=== PATIENT | female | born 1970 | race Caucasian/White ===

== ENCOUNTER 2017-01-04 19:37 | Emergency (ER) | payer BC ==
[2017-01-04] MEDS ORDERED: Albuterol/Ipratropium 3.0-0.5 MG/3 ML Neb Soln NEB ONE (19:56)
[2017-01-04] MEDS ORDERED: Albuterol/Ipratropium 3.0-0.5 MG/3 ML Neb Soln ONE (19:57)
--- NOTE | 2017-01-04 21:17 | EDM.PDOC ---
ED HISTORY OF PRESENT ILLNESS - General Chief Complaint: Respiratory Problem Stated Complaint: PT HAS CONGESTION Time Seen by Provider: 01/04/17 19:55 Source of Information: Reports: Patient History Limitations: Reports: No limitations - History of Present Illness INITIAL COMMENTS - FREE TEXT/NARRATIVE: History of present illness: [46-year-old female presenting with acute onset of wheezing and received inability to catch her breath. Patient has a known history of chronic bronchitis as well as asthma. Take it she's used her inhalers but they did not give her any relief.] Review of systems: As per history of present illness and below otherwise all systems reviewed and negative. Past medical history: As per history of present illness and as reviewed below otherwise noncontributory. Surgical history: As per history of present illness and as reviewed below otherwise noncontributory. Social history: No reported history of drug or alcohol abuse. Family history: As per history of present illness and as reviewed below otherwise noncontributory. Physical exam: HEENT: Atraumatic, normocephalic, pupils reactive, negative for conjunctival pallor or scleral icterus, mucous membranes moist, throat clear, neck supple, nontender, trachea midline. Lungs: Decreased air movement bilaterally with inspiratory and end expiratory wheezes, slightly improves with a cough. Otherwise chest nontender. Heart: S1S2, regular, negative for clicks, rubs, or JVD. Abdomen: Soft, nondistended, nontender. Negative for masses or hepatosplenomegaly. Negative for costovertebral tenderness. Pelvis: Stable nontender. Genitourinary: Deferred. Rectal: Deferred. Extremities: Atraumatic, negative for cords or calf pain. Neurovascular unremarkable. Neuro: Awake, alert, oriented. Cranial nerves II through XII unremarkable. Cerebellum unremarkable. Motor and sensory unremarkable throughout. Exam nonfocal. Patient indicates the procedure and as a breath and the unremitting coughing is what brought her in this evening. Patient received a DuoNeb and noted to have easy work of breathing and indicates that she does feel like she is getting good air now. In light of patient's chronic lung disease and continued smoking will overlie him in a her home nebs and steroid treatment with a run of antibiotics. Diagnostics: [Chest x-ray] Therapeutics: [Duo neb] Impression: [Asthma exacerbation acute on chronic] Plan: [Bursts of steroids, antibiotics,] Definitive disposition and diagnosis as appropriate pending reevaluation and review of above. - Related Data Allergies/ADRs: Allergies Allergy/AdvReac Type Severity Reaction Status Date / Time No Known Allergies Allergy Verified 04/22/16 19:41 Home Meds: Home Meds Albuterol Sulfate [Albuterol Sulfate HFA] 2 puff ORAL.INH Q4HR 05/17/15 [History ] Azithromycin [IJD: Azithromycin] 250 mg PO DAILY #6 tab 01/04/17 [Rx] Multivitamin [Multi-Vitamin Daily] 1 tab PO DAILY 01/04/17 [History] methylPREDNISolone [Medrol] 4 mg PO DAILY #21 tab.ds.pk 01/04/17 [Rx] Past Medical History HEENT History: Reports: Other (see below) Other HEENT History: eye surgery as a child Respiratory History: Reports: Asthma [employer] History: Reports: Oncologic (Cancer) History: Reports: Squamous cell carcinoma - Infectious Disease History Infectious Disease History: Reports: Hepatitis C - Past Surgical History GI Surgical History: Reports: Cholecystectomy Dermatological Surgical History: Reports: Other (see below) Social & Family History - Family History Family Medical History: Noncontributory Cardiac: Reports: Hypertension - Tobacco Use Smoking Status *Q: Current Every Day Smoker Years of Tobacco use: 25 Packs/Tins Daily: 1 Used Tobacco, but Quit: No Second Hand Smoke Exposure: Yes - Caffeine Use Caffeine Use: Reports: Coffee - Alcohol Use Days Per Week of Alcohol Use: 0 - Recreational Drug Use Recreational Drug Use: No ED ROS GENERAL - Review of Systems Review Of Systems: See Below (The history of present illness) ED EXAM, GENERAL - Physical Exam Exam: See Below (History of present illness) Course - Vital Signs Last Recorded V/S: Last Vital Signs Temp 36.0 C 01/04/17 19:42 Pulse 79 01/04/17 19:42 Resp 18 01/04/17 19:42 BP 156/89 H 01/04/17 19:42 Pulse Ox 96 01/04/17 19:42 - Orders/Labs/Meds Orders: Active Orders 24 hr Category Date Time Status RT Aerosol Therapy [RC] ASDIRECTED Care 01/04/17 19:56 Active CXR [Chest 2V] [CR] Stat Exams 01/04/17 20:17 Taken Meds: Medications Discontinued Medications Generic Name Dose Route Start Last Admin Trade Name Fremalik PRN Reason Stop Dose Admin Albuterol/Ipratropium 3 ml 01/04/17 19:56 01/04/17 21:09 Duoneb 3.0-0.5 Mg/3 Ml NEB 01/04/17 19:57 3 ml ONETIME ONE Administration Albuterol/Ipratropium Confirm 01/04/17 19:57 01/04/17 21:08 Duoneb 3.0-0.5 Mg/3 Ml Administered 01/04/17 19:58 Not Given Dose 3 ml .ROUTE .STK-MED ONE Departure - Departure Time of Disposition: 21:15 Disposition: Home, Self-Care 01 Condition: good Clinical Impression: Acute asthma, Chronic bronchitis with acute exacerbation Prescriptions: Azithromycin [IJD: Azithromycin] 250 mg PO DAILY #6 tab methylPREDNISolone [Medrol] 4 mg PO DAILY #21 tab.ds.pk Instructions: Upper Respiratory Infection, Adult, [id number] Forms: ED Department Discharge Additional Instructions: The following information is given to patients seen in the emergency department who are being discharged to home. This information is to outline your options for follow-up care. We provide all patients seen in our emergency department with a follow-up referral. The need for follow-up, as well as the timing and circumstances, are variable depending upon the specifics of your emergency department visit. If you don't have a primary care physician on staff, we will provide you with a referral. We always advise you to contact your personal physician following an emergency department visit to inform them of the circumstance of the visit and for follow-up with them and/or the need for any referrals to a consulting specialist. The emergency department will also refer you to a specialist when appropriate. This referral assures that you have the opportunity for follow-up care with a specialist. All of these measure are taken in an effort to provide you with optimal care, which includes your follow-up. Under all circumstances we always encourage you to contact your private physician who remains a resource for coordinating your care. When calling for follow-up care, please make the office aware that this follow-up is from your recent emergency room visit. If for any reason you are refused follow-up, please contact the [facility] Emergency Department at and asked to speak to the emergency department charge nurse. Take medication as directed Followup with PCP in one to 2 days Return to ED as needed as discussed - My Orders Last 24 Hours: My Active Orders 01/04/17 20:17 CXR [Chest 2V] [CR] Stat - Assessment/Plan Last 24 Hours: My Active Orders 01/04/17 20:17 CXR [Chest 2V] [CR] Stat
[2017-01-04 21:36] VITALS: BP 145/87
--- NOTE | 2017-01-05 10:03 | CR ---
EXAM DATE: 01/04/17 PATIENT'S AGE: 46 Patient: RAUDEL WASHBURN Facility: [place], [place] Site . Site : [id number] Study: XRay Chest [id number]/19/2017 8:37:42 PM Ordering Physician: Doctor You Final Report: INDICATION: COUGH X 8 DAYS TECHNIQUE: Chest 2 views. COMPARISON: 12/12/14 FINDINGS: Cardiovascular and mediastinum: Heart size and vasculature are normal in caliber and appearance. Mediastinum is within normal limits. Lungs and pleural spaces: Lungs are clear. No sign of infiltrate or mass. No sign of pleural effusion. No pneumothorax. Bones and soft tissues: No significant findings. IMPRESSION: Unremarkable chest. Dictated by: Rc Davis MD @ 01/04/2017 20:55:28 (Electronic Signature) Report Signed by Proxy and Original Signed Document filed in the Medical Record. MTDD
== END 2017-01-04 21:31 | disposition home or self-care (01) ==
LOC: MW.ED 19:37
DX: J45.901 Unspecified asthma with (acute) exacerbation (principal); F17.210 Nicotine dependence, cigarettes, uncomplicated; Z85.828 Personal history of other malignant neoplasm of skin; Z79.2 Long term (current) use of antibiotics; Z79.899 Other long term (current) drug therapy
CPT/HCPCS: 71020; 71020-26; 94664; 99284; 99284-25